=== PATIENT | male | born 1980 | race Caucasian/White ===

== ENCOUNTER 2019-02-20 03:44 | Emergency (ER) | payer SELFPAY ==
--- NOTE | 2019-02-20 04:17 | ER ---
Nurse's Notes [facility] Name: Maikol Zhang Age: 38 yrs Sex: Male : 1980 Arrival Date: 02/20/2019 Time: 03:47 Bed 5 Private MD: Diagnosis: Dysuria Presentation: 02/20 03:54 Presenting complaint: Patient states: "I feel the pain right on the tip of my penis"; lp1 States pain began earlier tonight, denies any penile discharge, skin changes. Transition of care: patient was not received from another setting of care. Onset of symptoms was February 20, 2019. Risk Assessment: Do you want to hurt yourself or someone else? Patient reports no desire to harm self or others. Initial Sepsis Screen: Does the patient meet any 2 criteria? No. Patient's initial sepsis screen is negative. Does the patient have a suspected source of infection? No. Patient's initial sepsis screen is negative. Care prior to arrival: None. 03:54 Method Of Arrival: Ambulatory lp1 03:54 Acuity: MELIDA 4 lp1 Historical: - Allergies: 03:59 No Known Allergies; lp1 - Home Meds: 03:59 lisinopril 40 mg Oral tab 1 tab once daily [Active]; lp1 - PMHx: 03:59 Hypertension; lp1 - PSHx: 03:59 None; lp1 - Immunization history:: Adult Immunizations up to date. - Social history:: Smoking status: Patient uses tobacco products, smokes one-half pack cigarettes per day. - Ebola Screening: : No symptoms or risks identified at this time. - Family history:: not pertinent. - Hospitalizations: : No recent hospitalization is reported. Screenin:00 Abuse screen: Denies threats or abuse. Denies injuries from another. Nutritional lp1 screening: No deficits noted. Tuberculosis screening: No symptoms or risk factors identified. Fall Risk None identified. Assessment: 03:59 General: Appears in no apparent distress. Behavior is appropriate for age. Pain: lp1 Complains of pain in groin Pain currently is 9 out of 10 on a pain scale. Quality of pain is described as burning. Neuro: No deficits noted. Cardiovascular: No deficits noted. Respiratory: No deficits noted. GI: No deficits noted. : Reports pain. EENT: No signs and/or symptoms were reported regarding the EENT system. Derm: Skin is pink, warm \\T\\ dry. Musculoskeletal: No deficits noted. 04:20 Reassessment: Provider notified of patient only able to provide small urine sample; lp1 Verbal order to cancel urine micro and urine culture orders. Vital Signs: 03:58 BP 125 / 96; Pulse 86; Resp 18; Temp 98; Pulse Ox 98% on R/A; Weight 99.79 kg; Height 5 lp1 ft. 11 in. (180.34 cm); Pain 9/10; 03:58 Body Mass Index 30.68 (99.79 kg, 180.34 cm) lp1 ED Course: 03:47 Patient arrived in ED. am2 03:47 Virgilio Mcmahon MD is Attending Physician. rn 03:57 Triage completed. lp1 03:57 Arm band placed on right wrist. lp1 04:00 Patient has correct armband on for positive identification. lp1 04:13 Mary Anne Marc, RN is Primary Nurse. lp1 04:24 No provider procedures requiring assistance completed. Patient did not have IV access lp1 during this emergency room visit. Administered Medications: 04:22 Drug: Rocephin (cefTRIAXone) 250 mg Route: IM; Site: right deltoid; lp1 04:23 Follow up: Response: Medication administered at discharge. lp1 04:23 Drug: AZITHromycin 1 grams Route: PO; lp1 04:23 Follow up: Response: Medication administered at discharge. lp1 Outcome: 04:16 Discharge ordered by . rn 04:24 Discharged to home ambulatory. lp1 04:24 Condition: good 04:24 Discharge instructions given to patient, Instructed on discharge instructions, follow up and referral plans. medication usage, Demonstrated understanding of instructions, follow-up care, medications, Prescriptions given X 1. 04:24 Patient left the ED. lp1 Signatures: Virgilio Mcmahon MD MD rn Pena, Laura, RN RN lp1 Sandra Cotto am
--- NOTE | 2019-02-20 04:17 | EDPHYS ---
Physician Documentation [facility] Name: Maikol Zhang Age: 38 yrs Sex: Male : 1980 Arrival Date: 02/20/2019 Time: 03:47 Bed 5 Private MD: ED Physician Virgilio Mcmhaon HPI: 02/20 04:12 This 38 yrs old Male presents to ER via Ambulatory with complaints of Pain rn With Urination. 04:12 The patient presents with urinary symptoms, dysuria. Onset: The symptoms/episode rn began/occurred 3 day(s) ago. Modifying factors: The symptoms are alleviated by nothing, the symptoms are aggravated by urinating. Severity of symptoms: At their worst the symptoms were mild, in the emergency department the symptoms are unchanged. The patient has experienced a previous episode. REports had unprotected sex with girl, thinks she might have STI, he reports dysuria and pain to tip of penis, no drainage or rash, no hematuria. Has had STI once in past and feels similar. No testicular pain.. Historical: - Allergies: 03:59 No Known Allergies; lp1 - Home Meds: 03:59 lisinopril 40 mg Oral tab 1 tab once daily [Active]; lp1 - PMHx: 03:59 Hypertension; lp1 - PSHx: 03:59 None; lp1 - Immunization history:: Adult Immunizations up to date. - Social history:: Smoking status: Patient uses tobacco products, smokes one-half pack cigarettes per day. - Ebola Screening: : No symptoms or risks identified at this time. - Family history:: not pertinent. - Hospitalizations: : No recent hospitalization is reported. ROS: 04:12 Constitutional: Negative for fever, chills, and weight loss, Cardiovascular: Negative rn for chest pain, palpitations, and edema, Respiratory: Negative for shortness of breath, cough, wheezing, and pleuritic chest pain, Abdomen/GI: Negative for abdominal pain, nausea, vomiting, diarrhea, and constipation, Back: Negative for injury and pain, : + dysuria, negative for injury or rash MS/Extremity: Negative for injury and deformity, Neuro: Negative for headache, weakness, numbness, tingling, and seizure. Exam: 04:12 Constitutional: This is a well developed, well nourished patient who is awake, alert, rn appears anxious Skin: Warm, dry with normal turgor. Normal color with no rashes, no lesions, and no evidence of cellulitis. Vital Signs: 03:58 BP 125 / 96; Pulse 86; Resp 18; Temp 98; Pulse Ox 98% on R/A; Weight 99.79 kg; Height 5 lp1 ft. 11 in. (180.34 cm); Pain 9/10; 03:58 Body Mass Index 30.68 (99.79 kg, 180.34 cm) lp1 MDM: 03:47 Patient medically screened. rn 04:12 Differential diagnosis: UTI, urethritis, STI. 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 Counseling: I had a detailed discussion with the patient and/or guardian regarding: the historical points, exam findings, and any diagnostic results supporting the discharge/admit diagnosis, lab results, the need for outpatient follow up, to return to the emergency department if symptoms worsen or persist or if there are any questions or concerns that arise at home. ED course: Pt is highly suspicious of STI, UA negative, only enough urine for dip, not micro or culture. Will treat with STI prophylaxis, states is going to notify his other partner.. 02/20 03:48 Order name: Urine Dipstick-Ancillary (obtain specimen); Complete Time: 04:23 rn 02/20 04:13 Order name: Urine Dipstick--Ancillary (enter results) mw2 Administered Medications: 04:22 Drug: Rocephin (cefTRIAXone) 250 mg Route: IM; Site: right deltoid; lp1 04:23 Follow up: Response: Medication administered at discharge. lp1 04:23 Drug: AZITHromycin 1 grams Route: PO; lp1 04:23 Follow up: Response: Medication administered at discharge. lp1 Disposition: 02/20/19 04:16 Discharged to Home. Impression: Dysuria. - Condition is Stable. - Discharge Instructions: Dysuria. - Prescriptions for Doxycycline Monohydrate 100 mg Oral Tablet - take 1 tablet by ORAL route every 12 hours for 7 days; 14 tablet. - Medication Reconciliation Form, Thank You Letter, Antibiotic Education, Prescription Opioid Use form. - Follow up: Private Physician; When: As needed; Reason: Recheck today's complaints, Re-evaluation by your physician. - Problem is new. - Symptoms are unchanged. Signatures: Dispatcher [employer] EDMS Virgilio Mcmahon MD MD rn Pena, Laura, RN RN lp1 Corrections: (The following items were deleted from the chart) 04:24 04:16 02/20/2019 04:16 Discharged to Home. Impression: Dysuria. Condition is Stable. lp1 Forms are Medication Reconciliation Form, Thank You Letter, Antibiotic Education, Prescription Opioid Use. Follow up: Private Physician; When: As needed; Reason: Recheck today's complaints, Re-evaluation by your physician. Problem is new. Symptoms are unchanged. rn 04:26 03:50 UA MICROSCOPIC+U.LAB.BRZ ordered. EDMS EDMS 04:26 03:50 Urine Culture+BA.LAB.BRZ ordered. EDMS EDMS
[2019-02-20 04:29] LABS: Urine Blood NEGATIVE (NEG); Urine Glucose NEGATIVE (NEG); Urine Protein NEGATIVE (NEG); Urine Specific Gravity 1.025 (1.005-1.030); Urine pH 6.5 (5.0-7.0)
[2019-02-20] MEDS ORDERED: WATER FOR INJ,STERILE 10 ML ONE (04:32)
[2019-02-20] MEDS ORDERED: AZITHROMYCIN 250 MG TAB ONE (04:32)
[2019-02-20] MEDS ORDERED: CEFTRIAXONE 250 MG/VIAL ONE (04:32)
== END 2019-02-20 04:24 | disposition home or self-care (01) ==
LOC: ER 03:44
DX: R30.0 Dysuria (principal); I10 Essential (primary) hypertension; F17.210 Nicotine dependence, cigarettes, uncomplicated
CPT/HCPCS: 81003; 96372; 99283; J0696

== ENCOUNTER 2021-03-23 09:57 | Emergency (ER) | payer SELFPAY ==
[2021-03-23 10:34] LABS: Absolute Lymphocytes (CBC) 3.9 K/uL (0.7-4.9); Basophils % 0.5 % (0-1.3); Hematocrit 47.5 % (39.6-49.0); Lymphocytes % 43.7 % (15.3-44.8); MPV 7.8 fL (7.6-11.3); RBC Red Blood Cell Count 5.35 M/uL (4.33-5.43)
[2021-03-23 10:36] LABS: Protime INR 1.09
[2021-03-23 10:57] LABS: ALT/SGPT 61 U/L (12-78); AST/SGOT 23 U/L (15-37); Albumin 4.5 g/dL (3.4-5.0); Alkaline Phosphatase 79 U/L (45-117); BUN Blood Urea Nitrogen 14 mg/dL (7-18); Bicarbonate 24 mmol/L (21-32); Bilirubin Direct 0.1 mg/dL (0-0.2); Bilirubin Total 0.5 mg/dL (0.2-1.0); Glucose Level 110 mg/dL (74-106); Magnesium 2.3 mg/dL (1.8-2.4); NT PRO-BNP 9 pg/mL (<125); Potassium 3.9 mmol/L (3.5-5.1); Protein, Total 8.7 g/dL (6.4-8.2); Sodium Level 140 mmol/L (136-145); Troponin (Emerg Dept Use Only) < 0.02 ng/mL (0.0-0.045)
--- NOTE | 2021-03-23 12:16 | RAD REPORT ---
EXAM DESCRIPTION: RAD - Chest Single View - 03/23/2021 12:05 pm CLINICAL HISTORY: DYSPNEA, history of COVID pneumonia 8 months earlier COMPARISON: None TECHNIQUE: AP portable chest image was obtained 03/23/2021 12:05 pm . FINDINGS: Lungs are clear. No remnant pneumonia or postinfectious scarring changes identifiable. Hea rt and vasculature are normal. No measurable pleural effusion and no pneumothorax. No acute bony abno rmality seen. No acute aortic findings suspected. IMPRESSION: No acute cardiopulmonary process.
--- NOTE | 2021-03-23 12:26 | ER ---
Nurse's Notes [facility] Name: Maikol Zhang Age: 40 yrs Sex: Male : 1980 Arrival Date: 03/23/2021 Time: 09:59 Bed 19 Private MD: Diagnosis: Dyspnea Presentation: 03/23 09:59 Chief complaint: Patient states: thinks he had COVID 8 months ago and he was really iw sick for three weeks, is worried that his lungs are damaged, has been SOB since last night, this morning was worse, can't catch his breath. Coronavirus screen: difficulty breathing. Ebola Screen: Patient negative for fever greater than or equal to 101.5 degrees Fahrenheit, and additional compatible Ebola Virus Disease symptoms Patient denies exposure to infectious person. Patient denies travel to an Ebola-affected area in the 21 days before illness onset. No symptoms or risks identified at this time. Initial Sepsis Screen: Does the patient meet any 2 criteria? No. Patient's initial sepsis screen is negative. Does the patient have a suspected source of infection? No. Patient's initial sepsis screen is negative. Risk Assessment: Do you want to hurt yourself or someone else? Patient reports no desire to harm self or others. Onset of symptoms was March 22, 2021. 09:59 Method Of Arrival: Wheelchair 09:59 Acuity: MELIDA 3 iw Triage Assessment: 10:42 Respiratory: Onset: The symptoms/episode began/occurred 8 months ago, the patient has kg moderate shortness of breath. Historical: - Allergies: 10:03 No Known Allergies; iw - Home Meds: 10:03 Suboxone sublingual once daily [Active]; lisinopril 40 mg Oral tab 1 tab once daily iw [Active]; - PMHx: 10:03 Hypertension; iw - PSHx: 10:03 None; iw - Immunization history:: Client reports receiving the 2nd dose of the Covid vaccine. - Social history:: Smoking status: Patient reports the use of cigarette tobacco products, smokes one-half pack cigarettes per day. Screenin:41 Abuse screen: Denies threats or abuse. Denies injuries from another. Nutritional kg screening: No deficits noted. Tuberculosis screening: No symptoms or risk factors identified. Fall Risk None identified. No fall in past 12 months (0 pts). No secondary diagnosis (0 pts). IV access (20 points). Ambulatory Aid- None/Bed Rest/Nurse Assist (0 pts). Gait- Normal/Bed Rest/Wheelchair (0 pts) Mental Status- Oriented to own ability (0 pts). Total Cavazos Fall Scale indicates No Risk (0-24 pts). Assessment: 10:05 Reassessment: JEANNIE Clement in triage assessing pt. jl7 10:15 General: Appears in no apparent distress. Behavior is anxious, crying. Pain: Denies kg pain. Neuro: No deficits noted. Level of Consciousness is awake, alert, obeys commands, Oriented to person, place, time, situation, Appropriate for age Reports. Cardiovascular: Reports nausea, shortness of breath, vomiting, Pt denies pain at this time but states, "I have sharp chest pain that hit really hard but then goes away." Heart tones S1 S2 Capillary refill < 3 seconds Rhythm is sinus rhythm. Respiratory: Reports shortness of breath at rest on exertion Airway is patent Trachea midline Respiratory effort is even, unlabored, relaxed, Respiratory pattern is regular, symmetrical, Ventilator assessment: Breath sounds are clear bilaterally. GI: Reports diarrhea, nausea, vomiting, x 8 months. : No deficits noted. EENT: No deficits noted. Derm: No deficits noted. Musculoskeletal: No deficits noted. 13:25 Reassessment: Gave patient community resources to help him find a PCP and follow up. Pt kg was very upset that the provider didn't give him a prescription for blood pressure medications. I explained that while he was in the ER his B/P was stable and his B/P didn't warrant medications. Pt was adamant that he needed a prescription for blood pressure medications. I explained that he needed to keep a blood pressure journal at home and present it to his primary physician that on today's findings the blood pressure was within normal limits. The patient got very upset and threw the discharge papers on the bed. Then stated he would just be back. I stated that if he felt he had an emergency to please come back. The patient then used the phone to call a ride and went to the waiting room. . Vital Signs: 09:59 BP 143 / 93; Pulse 118; Resp 18 S; Temp 98.6; Pulse Ox 100% on R/A; iw 10:40 BP 134 / 91; Pulse 89; Resp 20; Pulse Ox 95% on R/A; kg 11:00 BP 132 / 85; Pulse 85; Resp 18; Pulse Ox 95% on R/A; kg 11:20 BP 146 / 84; Pulse 94; Resp 20; Pulse Ox 98% on R/A; kg 11:30 BP 125 / 85; Pulse 80; Resp 20; Pulse Ox 99% ; kg 11:45 BP 134 / 91; Pulse 87; Resp 18; Pulse Ox 96% ; kg 12:00 BP 138 / 89; Pulse 80; Resp 18; Pulse Ox 98% ; kg 12:24 BP 129 / 84; Pulse 97; Resp 18 S; Pulse Ox 99% on R/A; kg 12:45 BP 138 / 86; Pulse 80; Resp 17; Pulse Ox 97% ; kg ED Course: 09:59 Patient arrived in ED. iw 10:03 Triage completed. iw 10:04 Arm band placed on. iw 10:09 Jason Her MD is Attending Physician. kdr 10:09 Elsi Mueller, RN is Primary Nurse. kg 10:09 Racquel Rowan [facility]C [facility]. kb 10:30 Inserted saline lock: 20 gauge in right antecubital area, using aseptic technique. kg 10:37 Basic Metabolic Panel Sent. kg 10:37 CBC with Diff Sent. kg 10:37 LFT's Sent. kg 10:37 Magnesium Sent. kg 10:37 NT PRO-BNP Sent. kg 10:37 PT-INR Sent. kg 10:38 Troponin (emerg Dept Use Only) Sent. kg 10:42 Patient has correct armband on for positive identification. Bed in low position. Call kg light in reach. Side rails up X2. 12:05 XRAY Chest (1 view) In Process Unspecified. EDMS 12:45 IV discontinued, intact, bleeding controlled, No redness/swelling at site. Pressure kg dressing applied. 13:03 No provider procedures requiring assistance completed. kg Administered Medications: No medications were administered Outcome: 12:25 Discharge ordered by . kb 13:05 Discharged to home ambulatory. kg 13:05 Condition: stable 13:05 Discharge instructions given to patient, Instructed on discharge instructions, follow up and referral plans. Demonstrated understanding of instructions, follow-up care. 13:24 Patient left the ED. kg Signatures: Dispatcher [employer] EDMS Racquel Rowan FNP-C FNP-CkJason Deluna MD MD kdr Dia Lockhart RN RN iw Adrinaa Cronin RN RN jl7 Elsi Mueller RN RN kg Corrections: (The following items were deleted from the chart) 13:30 10:41 Respiratory: kg kg
--- NOTE | 2021-03-23 12:26 | EDPHYS ---
Physician Documentation [facility] Name: Maikol Zhang Age: 40 yrs Sex: Male : 1980 Arrival Date: 03/23/2021 Time: 09:59 Bed 19 Private MD: ED Physician Jason eHr HPI: 03/23 12:06 This 40 yrs old Male presents to ER via Wheelchair with complaints of kb Breathing Difficulty. 12:06 The patient has shortness of breath at rest. Onset: The symptoms/episode began/occurred kb 8 month(s) ago. Duration: The symptoms are continuous. The patient's shortness of breath is aggravated by nothing, is alleviated by nothing. Associated signs and symptoms: The patient has no apparent associated signs or symptoms. Severity of symptoms: At their worst the symptoms were moderate in the emergency department the symptoms are unchanged. The patient has not experienced similar symptoms in the past. The patient has not recently seen a physician. Pt reports shortness of breath for 8 months or more. States it got worse today. Pt appears anxious during exam. Pt states he is scared. . Historical: - Allergies: 10:03 No Known Allergies; iw - Home Meds: 10:03 Suboxone sublingual once daily [Active]; lisinopril 40 mg Oral tab 1 tab once daily iw [Active]; - PMHx: 10:03 Hypertension; iw - PSHx: 10:03 None; iw - Immunization history:: Client reports receiving the 2nd dose of the Covid vaccine. - Social history:: Smoking status: Patient reports the use of cigarette tobacco products, smokes one-half pack cigarettes per day. ROS: 12:06 Constitutional: Negative for fever, chills, and weight loss. kb 12:06 Respiratory: Positive for shortness of breath, Negative for cough, dyspnea on exertion, hemoptysis, orthopnea, pleurisy, sputum production, wheezing. 12:06 All other systems are negative. Exam: 10:56 Constitutional: This is a well developed, well nourished patient who is awake, alert, kb and in no acute distress. Head/Face: Normocephalic, atraumatic. ENT: Moist Mucous membranes Cardiovascular: Regular rate and rhythm with a normal S1 and S2. No gallops, murmurs, or rubs. No pulse deficits. Respiratory: Respirations even and unlabored. No increased work of breathing, no retractions or nasal flaring. Abdomen/GI: Soft, non-tender. No distention Skin: Warm, dry with normal turgor. Normal color. MS/ Extremity: Pulses equal, no cyanosis. Neurovascular intact. Full, normal range of motion. Neuro: Awake and alert, GCS 15, oriented to person, place, time, and situation. Moves all extremities. Normal gait. Psych: Awake, alert, with orientation to person, place and time. Behavior, mood, and affect are within normal limits. 10:56 Constitutional: The patient appears anxious. 10:56 ECG was reviewed by the Attending Physician. Vital Signs: 09:59 BP 143 / 93; Pulse 118; Resp 18 S; Temp 98.6; Pulse Ox 100% on R/A; iw 10:40 BP 134 / 91; Pulse 89; Resp 20; Pulse Ox 95% on R/A; kg 11:00 BP 132 / 85; Pulse 85; Resp 18; Pulse Ox 95% on R/A; kg 11:20 BP 146 / 84; Pulse 94; Resp 20; Pulse Ox 98% on R/A; kg 11:30 BP 125 / 85; Pulse 80; Resp 20; Pulse Ox 99% ; kg 11:45 BP 134 / 91; Pulse 87; Resp 18; Pulse Ox 96% ; kg 12:00 BP 138 / 89; Pulse 80; Resp 18; Pulse Ox 98% ; kg 12:24 BP 129 / 84; Pulse 97; Resp 18 S; Pulse Ox 99% on R/A; kg 12:45 BP 138 / 86; Pulse 80; Resp 17; Pulse Ox 97% ; kg MDM: 10:09 Patient medically screened. kb 12:06 Data reviewed: vital signs, nurses notes. Data interpreted: Pulse oximetry: on room air kb is 98 %. Interpretation: normal. 12:07 Counseling: I had a detailed discussion with the patient and/or guardian regarding: the kb historical points, exam findings, and any diagnostic results supporting the discharge/admit diagnosis, lab results, radiology results, the need for outpatient follow up, a family practitioner, to return to the emergency department if symptoms worsen or persist or if there are any questions or concerns that arise at home. 12:54 ED course: Discussed all results with pt. Pt educated to follow up with PCP regarding kb symptoms. Pt requests blood pressure medication because he used to be on it, but hasn't taken it since before symptoms started (>8mo). States he was supposed to take lisinopril daily, but when he knew he was running low he would take it every other day or half doses. States he has been out and wants another 90 day supply like he got before. Pt educated to keep a blood pressure log and follow up with PCP for hypertension management as needed. Pt very unhappy that blood pressure medication isn't being prescribed today. Asked pt about history of anxiety. Pt became upset that it was suggested. States he has nothing to be anxious about. Also states he can't relax at home because he has 2 kids. . 03/23 10:10 Order name: Basic Metabolic Panel; Complete Time: 11:09 kb 03/23 10:10 Order name: CBC with Diff; Complete Time: 10:46 kb 03/23 10:10 Order name: LFT's; Complete Time: 11: kb 03/23 10:10 Order name: Magnesium; Complete Time: 11: kb 03/23 10:10 Order name: NT PRO-BNP; Complete Time: 11: kb 03/23 10:10 Order name: PT-INR; Complete Time: :46 kb 03/23 10:10 Order name: Troponin (emerg Dept Use Only); Complete Time: 11: kb 03/23 10:10 Order name: XRAY Chest (1 view); Complete Time: 12:25 kb 03/23 10:10 Order name: EKG; Complete Time: 10:11 kb 03/23 10:10 Order name: Cardiac monitoring; Complete Time: 10:37 kb 03/23 10:10 Order name: EKG - Nurse/Tech; Complete Time: 10:59 kb 03/23 10:10 Order name: D-Dimer; Complete Time: 10:46 kb 03/23 11:43 Order name: SARS-COV-2 RT PCR; Complete Time: 11:50 EDMS 03/23 10:10 Order name: IV Saline Lock; Complete Time: 10:37 kb 03/23 10:10 Order name: Labs collected and sent; Complete Time: 10:37 kb 03/23 10:10 Order name: O2 Per Protocol; Complete Time: 10:37 kb 03/23 10:10 Order name: O2 Sat Monitoring; Complete Time: 10:37 kb EC:56 Rate is 93 beats/min. Rhythm is regular. QRS [place] is Normal. TN interval is normal at kb 136 msec. QRS interval is normal at 90 msec. QT interval is normal at 356 msec. Administered Medications: No medications were administered Disposition: 15:01 Co-signature as Attending Physician, Jason Her MD I agree with the assessment and kdr plan of care. Disposition Summary: 03/23/21 12:25 Discharge Ordered Location: Home kb Condition: Stable kb Diagnosis - Dyspnea kb Followup: kb - With: Emergency Department - When: As needed - Reason: Worsening of condition Followup: kb - With: Private Physician - When: 2 - 3 days - Reason: Recheck today's complaints, Continuance of care, Re-evaluation by your physician Discharge Instructions: - Discharge Summary Sheet kb - Shortness of Breath, Adult, [id number] kb Forms: - Medication Reconciliation Form kb - Thank You Letter kb - Antibiotic Education kb - Prescription Opioid Use kb Signatures: Dispatcher [employer] [facility] Racquel Rowan, MANDIE-C COPY EDITOR-Jason Ascencio MD MD kdr Dia Lockhart RN RN iw Corrections: (The following items were deleted from the chart) 10:43 10:11 CORONAVIRUS+ ordered. [facility] 14:12 12:54 ED course: Discussed all results with pt. Pt educated to follow up with PCP johanna regarding symptoms. Pt requests blood pressure medication because he used to be on it, but hasn't taken it since before symptoms started (>8mo). States he was supposed to take lisinopril daily, but when he knew he was running low he would take it every other day or half doses. States he has been out and wants another 90 day supply like he got before. Pt educated to keep a blood pressure log and follow up with PCP for hypertension management as needed. Pt very unhappy that blood pressure medication isn't being prescribed today. Asked pt about history of anxiety. Pt became upset that it was suggested. States he has nothing to be anxious about. Also states he can't relax at home because he has 2 kids. . kb
[2021-03-23 13:39] VITALS: TEMP 98.6
[2021-03-23 13:51] VITALS: BP 138/86; O2SAT 97
== END 2021-03-23 13:24 | disposition home or self-care (01) ==
LOC: ER 09:57
DX: R06.00 Dyspnea, unspecified (principal); I10 Essential (primary) hypertension; F17.210 Nicotine dependence, cigarettes, uncomplicated; Z20.822 Contact with and (suspected) exposure to COVID-19
CPT/HCPCS: 36415; 71045; 80048; 80076; 83735; 83880; 84484; 85025; 85379; 85610; 93005; 99284; U0003

== ENCOUNTER 2023-01-24 15:52 | Emergency (ER) | payer SELFPAY ==
[2023-01-24 17:13] LABS: Hematocrit 38.8 % (39.6-49.0); Lymphocytes % 5.8 % (15.3-44.8); MCV 89.6 fL (80-100); RBC Red Blood Cell Count 4.33 M/uL (4.33-5.43)
[2023-01-24 17:18] LABS: Protime INR 1.08
[2023-01-24 17:33] LABS: ALT/SGPT 34 U/L (16-61); AST/SGOT 19 U/L (15-37); Albumin 3.8 g/dL (3.4-5.0); Alkaline Phosphatase 60 U/L (45-117); BUN Blood Urea Nitrogen 19 mg/dL (7-18); Bicarbonate 28 mEq/L (21-32); Bilirubin Total 0.3 mg/dL (0.2-1.0); Glomerular Filtration Rate 86 ml/min (=/>90); Glucose Level 155 mg/dL (74-106); Magnesium 1.8 mg/dL (1.6-2.4); NT PRO-BNP 55 pg/mL (<125); Potassium 3.5 mEq/L (3.5-5.1); Protein, Total 7.1 g/dL (6.4-8.2); Sodium Level 135 mEq/L (136-145)
[2023-01-24 17:41] LABS: Bilirubin Direct < 0.1 mg/dL (0-0.2); Bilirubin Indirect, Calculated ND mg/dL (0.2-0.8)
[2023-01-24 17:44] LABS: Barbiturates NEGATIVE (NEGATIVE); Benzodiazepines NEGATIVE (NEGATIVE); Cocaine NEGATIVE (NEGATIVE); METHAMPHETAM NEGATIVE (NEGATIVE); Methadone NEGATIVE (NEGATIVE); Opiates NEGATIVE (NEGATIVE); Phencyclidine NEGATIVE (NEGATIVE); THC Cannibis POSITIVE (NEGATIVE)
[2023-01-24] MEDS ORDERED: LORazepam 2 MG/ML VIAL ONE (18:59)
--- NOTE | 2023-01-24 19:10 | EDPHYS ---
Physician Documentation [facility] Name: Maikol Zhang Age: 42 yrs Sex: Male : 1980 Arrival Date: 01/24/2023 Time: 15:52 Bed DIS5 Private MD: ED Physician Rj Mina HPI: 01/24 16:20 This 42 yrs old Male presents to ER via EMS with complaints of Anxiety, Chest Pain. cp 16:20 The patient or guardian reports chest pain that is located primarily in the anterior cp chest wall, left. 16:20 Onset: today. The pain does not radiate. Associated signs and symptoms: Pertinent cp positives: anxiety, Pertinent negatives: abdominal pain, cough, diaphoresis, dizziness, headache, lower extremity pain, lower extremity swelling, shortness of breath, syncope, vomiting. 16:20 The chest pain is described as a pressure. Duration: The patient or guardian reports a cp single episode, that is still ongoing. 16:20 Severity of pain: in the emergency department the pain is unchanged despite EMS cp interventions. The patient has experienced similar episodes in the past, multiple times. Patient reports episodes of chest pain occur when he becomes upset. History of HTN and illegal drug use but reports last use was 3 years ago. Historical: - Allergies: 16:20 No Known Allergies; aa5 - PMHx: 16:20 Hypertension; aa5 16:20 Schizophrenia; aa5 16:20 Drug Abuse; Sober since 2019; aa5 - Immunization history:: Adult Immunizations unknown. - Social history:: Smoking status: Patient reports the use of cigarette tobacco products, 5 cigarettes a day . ROS: 16:25 Constitutional: Negative for body aches, chills, fever, poor PO intake. cp 16:25 Eyes: Negative for injury, pain, redness, and discharge. cp 16:25 ENT: Negative for drainage from ear(s), ear pain, sore throat, difficulty swallowing, difficulty handling secretions. 16:25 Cardiovascular: Positive for chest pain, palpitations, Negative for edema. 16:25 Respiratory: Positive for shortness of breath, Negative for cough, wheezing. 16:25 Abdomen/GI: Negative for abdominal pain, nausea, vomiting, and diarrhea. 16:25 Back: Negative for pain at rest, pain with movement. 16:25 Neuro: Negative for altered mental status, dizziness, headache, weakness. 16:25 Psych: Positive for anxiety, Negative for auditory hallucinations, visual hallucinations, suicide gesture, suicidal ideation. 16:25 All other systems are negative. Exam: 16:30 Constitutional: The patient appears in no acute distress, alert, awake, cp non-diaphoretic, non-toxic, well developed, well nourished, anxious, tearful 16:30 Head/Face: Normocephalic, atraumatic. cp 16:30 Eyes: Periorbital structures: appear normal, Conjunctiva: normal, no exudate, no injection, Sclera: no appreciated abnormality, Lids and lashes: appear normal, bilaterally. 16:30 ENT: External ear(s): are unremarkable, Nose: is normal, Mouth: Lips: moist, Oral mucosa: pink and intact, moist, Posterior pharynx: is normal, airway is patent, no erythema, no exudate. 16:30 Neck: ROM/movement: is normal, is supple, without pain, no range of motions limitations. 16:30 Chest/axilla: Inspection: normal, Palpation: is normal, no crepitus, no tenderness. 16:30 Cardiovascular: Rate: tachycardic, Rhythm: regular, Edema: is not appreciated, JVD: is not appreciated. 16:30 Respiratory: the patient does not display signs of respiratory distress, Respirations: normal, no use of accessory muscles, no retractions, labored breathing, is not present, Breath sounds: are clear throughout, no decreased breath sounds, no stridor, no wheezing. 16:30 Abdomen/GI: Inspection: abdomen appears normal, Palpation: abdomen is soft and non-tender, in all quadrants. 16:30 Back: pain, is absent, ROM is normal. 16:30 Neuro: Orientation: to person, place \T\ time. Mentation: is normal, Motor: moves all fours, strength is normal, Sensation: is normal, Gait: is steady. 16:40 ECG was reviewed by the Attending Physician. cp Vital Signs: 16:20 BP 152 / 85; Pulse 105; Resp 20 S; Temp 98.2(TE); Pulse Ox 100% on R/A; aa5 16:20 Weight 95.71 kg (R); Height 5 ft. 11 in. (R); aa5 18:32 BP 145 / 73; Pulse 79; Resp 16; Pulse Ox 100% on R/A; iw 16:20 Body Mass Index 29.43 (95.71 kg, 180.34 cm) aa5 MDM: 16:20 Patient medically screened. cp 19:05 The patient was given aspirin in the Emergency Department. cp 19:05 Data reviewed: vital signs, nurses notes, lab test result(s), EKG, radiologic studies, cp plain films. Consideration of Admission/Observation Escalation of care including admission/observation considered. I considered the following discharge prescriptions or medication management in the emergency department Medications were administered in the Emergency Department. See MAR. Test considered but Not performed: CT: chest. Care significantly affected by the following chronic conditions: Hypertension. Counseling: I had a detailed discussion with the patient and/or guardian regarding: the historical points, exam findings, and any diagnostic results supporting the discharge/admit diagnosis, lab results, radiology results, the need for outpatient follow up, a equipment maintenance tech, to return to the emergency department if symptoms worsen or persist or if there are any questions or concerns that arise at home. Response to treatment: the patient's symptoms have markedly improved after treatment, Patient reports symptoms improved and requesting discharge to home. Special discussion: Based on the patient's history, exam, and Dx evaluation, there is no indication for emergent intervention or inpatient Tx. It is understood by the patient/guardian that if the Sx's persist or worsen they need to return immediately for re-evaluation. 01/24 16: Order name: Basic Metabolic Panel; Complete Time: 17:55 cp 01/24 17:55 Interpretation: Normal except: NA 135; GLUC 155; BUN 19; GFR 86. cp 01/24 16:27 Order name: CBC with Diff; Complete Time: 17:55 cp 01/24 17:55 Interpretation: Normal except: WBC 17.90; HGB 12.9; HCT 38.8; ASHISH% 90.2; LYM% 5.8; NEUT cp A 16.2. 01/24 16:27 Order name: LFT's; Complete Time: 17:55 cp 01/24 16:27 Order name: Magnesium; Complete Time: 17:55 cp 01/24 16:27 Order name: NT PRO-BNP; Complete Time: 17:55 cp 01/24 16:27 Order name: PT-INR; Complete Time: 17:55 cp 01/24 16:27 Order name: Troponin HS; Complete Time: 17:55 cp 01/24 16:28 Order name: UDS; Complete Time: 17:55 cp 01/24 17:56 Order name: LAB Add On cp 01/24 17:56 Order name: D-Dimer; Complete Time: 18:31 cp 01/24 18:31 Interpretation: Reviewed. cp 01/24 16:27 Order name: XRAY Chest (1 view) cp 01/24 16:27 Order name: EKG; Complete Time: 16:28 cp 01/24 16:27 Order name: Cardiac monitoring; Complete Time: 18:27 cp 01/24 16:27 Order name: EKG - Nurse/Tech; Complete Time: 16:38 cp 01/24 16:27 Order name: IV Saline Lock; Complete Time: 17:01 cp 01/24 16:27 Order name: Labs collected and sent; Complete Time: 17:01 cp 01/24 16:27 Order name: O2 Per Protocol; Complete Time: 17:01 cp 01/24 16:27 Order name: O2 Sat Monitoring; Complete Time: 17:01 EC:40 Rate is 92 beats/min. Rhythm is regular. PA interval is normal. QRS interval is cp prolonged at 108 msec. QT interval is normal. T waves are Inverted in lead aVR. Interpreted by me. Reviewed by me. Administered Medications: 18:27 Not Given (Patient Refused): Aspirin PO Chewable Tablet 324 mg PO once; 81 mg tablets x iw 4 18:27 Not Given (Patient Refused): Nitroglycerin Sublingual 0.4 mg Sublingual once iw 18:55 Drug: Ativan IVP 1 mg Route: IVP; Site: left antecubital; iw 18:57 Not Given (Patient Refused): NS 0.9% IV 1000 ml IV at 1 bolus Per protocol; 1000 mL iw bolus Disposition Summary: 01/24/23 19:09 Discharge Ordered Location: Home cp Problem: new cp Symptoms: have improved cp Condition: Stable cp Diagnosis - Chest pain, unspecified cp - Generalized anxiety disorder cp Followup: cp - With: Marty Bhatt MD - When: 2 - 3 days - Reason: chest pain Discharge Instructions: - Discharge Summary Sheet cp - Nonspecific Chest Pain, Adult cp - Aspirin and Your Heart cp - Managing Anxiety, Adult cp Forms: - Medication Reconciliation Form cp - Thank You Letter cp - Antibiotic Education cp - Prescription Opioid Use cp Prescriptions: - Vistaril 25 mg Oral capsule - take 1 capsule by ORAL route 4 times per day as needed for anxiety; 30 capsule; cp Refills: 0, Product Selection Permitted Signatures: Dispatcher [employer] Dia Croft RN RN iw Calderon, Audri, RN RN aa5 Rj Joya PA PA cp Corrections: (The following items were deleted from the chart) 01/25 18:01/23 16:40 ECG was reviewed by the Attending Physician. cp cp 01/25 18:01/23 16:40 Rate is 92 beats/min. Rhythm is regular. PA interval is normal. QRS cp interval is prolonged at 108 msec. QT interval is normal. T waves are Inverted in lead aVR. Interpreted by me. Reviewed by me. cp
--- NOTE | 2023-01-24 19:10 | ER ---
Nurse's Notes [facility] Name: Maikol Zhang Age: 42 yrs Sex: Male : 1980 Arrival Date: 01/24/2023 Time: 15:52 Bed DIS5 Private MD: Diagnosis: Chest pain, unspecified;Generalized anxiety disorder Presentation: 01/24 16:20 Chief complaint: EMS states: anxiety attack, pt was found crying, with HR 160bpm upon aa5 arrival. EMS reports HR decreased to 110bpm after 500 cc NS bolus. Pt c/o chest pain, reports has already been seen by PCP and fitness technician. 16:20 Acuity: MELIDA 3 aa5 16:20 Coronavirus screen: At this time, the client does not indicate any symptoms associated aa5 with coronavirus-19. Ebola Screen: Patient denies travel to an Ebola-affected area in the 21 days before illness onset. Initial Sepsis Screen: Does the patient meet any 2 criteria? HR > 90 bpm. Does the patient have a suspected source of infection? No. Patient's initial sepsis screen is negative. Risk Assessment: Do you want to hurt yourself or someone else? Patient reports no desire to harm self or others. Onset of symptoms was January 24, 2023. 16:20 Method Of Arrival: EMS: [facility] aa5 16:20 Care prior to arrival: Medication(s) given: Normal saline infusion, 1000 mL, IV aa5 initiated. 20 GA, in the left antecubital area. Triage Assessment: 16:20 General: Appears comfortable, Behavior is calm, cooperative. Neuro: Level of aa5 Consciousness is awake, alert, obeys commands, Oriented to person, place, time, situation. Respiratory: Airway is patent Respiratory effort is even, unlabored, Respiratory pattern is regular, symmetrical. Derm: Skin is pink, warm \T\ dry. Historical: - Allergies: 16:20 No Known Allergies; aa5 - PMHx: 16:20 Hypertension; aa5 16:20 Schizophrenia; aa5 16:20 Drug Abuse; Sober since 2019; aa5 - Immunization history:: Adult Immunizations unknown. - Social history:: Smoking status: Patient reports the use of cigarette tobacco products, 5 cigarettes a day . Screenin:28 [facility] ED Fall Risk Assessment (Adult) History of falling in the last 3 months, iw including since admission. Abuse screen: Denies threats or abuse. Denies injuries from another. Nutritional screening: No deficits noted. Tuberculosis screening: No symptoms or risk factors identified. Assessment: 18:28 Reassessment: Patient appears in no apparent distress at this time. Patient and/or iw family updated on plan of care and expected duration. Pain level reassessed. Patient is alert, oriented x 3, equal unlabored respirations, skin warm/dry/pink. Patient states feeling better. Patient states symptoms have improved. 18:55 Reassessment: Patient appears in no apparent distress at this time. Patient and/or iw family updated on plan of care and expected duration. Pain level reassessed. Patient is alert, oriented x 3, equal unlabored respirations, skin warm/dry/pink. Pain: Denies pain. Pain does not radiate. Pain began suddenly. Cardiovascular: Patient's skin is warm and dry. 19:17 Reassessment: Patient appears in no apparent distress at this time. Patient and/or vg1 family updated on plan of care and expected duration. Pain level reassessed. Patient is alert, oriented x 3, equal unlabored respirations, skin warm/dry/pink. Patient states feeling better. Vital Signs: 16:20 BP 152 / 85; Pulse 105; Resp 20 S; Temp 98.2(TE); Pulse Ox 100% on R/A; aa5 16:20 Weight 95.71 kg (R); Height 5 ft. 11 in. (R); aa5 18:32 BP 145 / 73; Pulse 79; Resp 16; Pulse Ox 100% on R/A; iw 16:20 Body Mass Index 29.43 (95.71 kg, 180.34 cm) aa5 ED Course: 15:53 Patient arrived in ED. kj1 16:00 Rj Joya PA is PHCP. cp 16:00 Rj Mina MD is Attending Physician. cp 16:20 Arm band placed on. aa5 16:24 Triage completed. aa5 16:27 EKG completed in triage. Results shown to MD. aa5 16:53 XRAY Chest (1 view) In Process Unspecified. EDMS 17:01 Dia Lockhart, RN is Primary Nurse. iw 17:01 Maintain EMS IV. Dressing intact. Good blood return noted. Site clean \T\ dry. Gauge \T\ iw site: 20 LAC. 18:56 No provider procedures requiring assistance completed. IV discontinued, intact, iw bleeding controlled, No redness/swelling at site. Pressure dressing applied. Patient maintains SpO2 saturation greater than 95% on room air. 19:08 Marty Bhatt MD is Referral Physician. cp Administered Medications: 18:27 Not Given (Patient Refused): Aspirin PO Chewable Tablet 324 mg PO once; 81 mg tablets x iw 4 18:27 Not Given (Patient Refused): Nitroglycerin Sublingual 0.4 mg Sublingual once iw 18:55 Drug: Ativan IVP 1 mg Route: IVP; Site: left antecubital; iw 18:57 Not Given (Patient Refused): NS 0.9% IV 1000 ml IV at 1 bolus Per protocol; 1000 mL iw bolus Medication: 18:28 VIS not applicable for this client. iw Outcome: 19:09 Discharge ordered by . cp 19:18 Discharged to home ambulatory, with family. vg1 19:18 Condition: good 19:18 Discharge instructions given to patient, Instructed on discharge instructions, follow up and referral plans. medication usage, Demonstrated understanding of instructions, follow-up care, medications, Prescriptions given X 1. 19:18 Patient left the ED. vg1 Signatures: Dispatcher [employer] EDMS Dia Lockhart, RN RN iw Rayna Tillman RN RN aa5 Rj Joya PA PA Rosetta Echols kj1 Lauren Cavanaugh, RN RN vg1
[2023-01-24 19:30] VITALS: TEMP 98.2; O2SAT 100
--- NOTE | 2023-01-24 19:30 | RAD REPORT ---
EXAM DESCRIPTION: RADChest Single View01/24/2023 4:51 pm CLINICAL HISTORY: CHEST PAIN COMPARISON: Chest Single View dated 03/23/2021 TECHNIQUE: Portable AP view of the chest. FINDINGS: Mild bibasilar interstitial prominence. No focal consolidation. No pneumothorax or effusio n. The cardiomediastinal contours are unremarkable. IMPRESSION: Mild bibasilar interstitial prominence, could reflect mild central edema.
[2023-01-24 19:32] VITALS: BP 145/73
--- NOTE | 2023-01-25 11:22 | EKG ---
Test Date: 2023-01-24 Test Time: 16:32:55 Feed Elevator Worker: ASHLEY MEASUREMENT RESULTS: Intervals: Rate: 92 NH: 158 QRSD: 108 QT: 356 QTc: 440 [place]: P: 66 NH: 158 QRS: 62 T: 43 INTERPRETIVE STATEMENTS: Normal sinus rhythm Normal ECG Compared to ECG 03/23/2021 10:50:31 No significant changes Electronically Signed On 01-25-23 11:20:13 CDT by Raul Carlin
== END 2023-01-24 19:18 | disposition home or self-care (01) ==
LOC: ER 15:52
DX: F41.1 Generalized anxiety disorder (principal)
CPT/HCPCS: 36415; 71045; 80048; 80076; 80307; 83735; 83880; 84484; 85025; 85379; 85610; 93005

== ENCOUNTER 2023-06-13 10:03 | Emergency (ER) | payer SELFPAY ==
[2023-06-13] MEDS ORDERED: ASPIRIN 81 MG CHEWABLE TABLET ONE (10:25)
[2023-06-13 10:41] LABS: Absolute Lymphocytes (CBC) 3.6 K/uL (0.7-4.9); Hematocrit 44.4 % (39.6-49.0); Lymphocytes % 28.9 % (15.3-44.8); MPV 7.6 fL (7.6-11.3); Platelets 390 thou/uL (152-406); RBC Red Blood Cell Count 4.83 M/uL (4.33-5.43)
--- NOTE | 2023-06-13 10:53 | RAD REPORT ---
EXAM DESCRIPTION: RAD - Chest Single View - 06/13/2023 10:40 am CLINICAL HISTORY: CHEST PAIN Chest pain. COMPARISON: Chest Single View dated 01/24/2023; Chest Single View dated 03/23/2021 FINDINGS: Portable technique limits examination quality. The lungs are grossly clear. The heart is normal in size. No displaced fractures. IMPRESSION: No acute intrathoracic process suspected.
[2023-06-13 11:00] LABS: Potassium 3.6 mEq/L (3.5-5.1); Troponin High Sensitivity 3.9 pg/mL (<58.9)
--- NOTE | 2023-06-13 11:24 | EDPHYS ---
Physician Documentation [facility] Name: Maikol Zhang Age: 43 yrs Sex: Male : 1980 Arrival Date: 06/13/2023 Time: 10:03 Bed 14 Private MD: ED Physician Xavi Prado HPI: 06/13 11:23 This 43 yrs old Male presents to ER via Ambulatory with complaints of Chest Pain. ms3 11:23 43-year-old male with past medical history of hypertension, schizophrenia, drug abuse ms3 presents for chest pain that is been ongoing for 4-1/2 days. Patient states the pain has been constant. Patient denies nausea, vomiting, sweating. Patient endorses anxiety and shortness of breath. Patient states the pain is worse with deep breathing and stretching his chest. Patient denies alleviating factors. Historical: - Allergies: 10:53 No Known Allergies; nj1 - Home Meds: 10:53 Suboxone sublingual once daily [Active]; nj1 - PMHx: 10:53 drug abuse; Hypertension; Schizophrenia; Sober since 2019; nj1 - Immunization history:: Client reports receiving the 2nd dose of the Covid vaccine. - Social history:: Smoking status: Patient reports the use of cigarette tobacco products, smokes one-half pack cigarettes per day. ROS: 11:23 Constitutional: Negative for fever, and chills. Neck: Negative for injury, pain, and ms3 swelling, Respiratory: Negative for shortness of breath, cough, wheezing, and pleuritic chest pain, Abdomen/GI: Negative for abdominal pain, nausea, vomiting, diarrhea, and constipation, MS/Extremity: Negative for injury and deformity, Skin: Negative for injury, rash, and discoloration, 11:23 Cardiovascular: Positive for chest pain, 11:23 All other systems are negative, Exam: 11:23 Constitutional: This is a well developed, well nourished patient who is awake, alert, ms3 and in no acute distress. Head/Face: Normocephalic, atraumatic. Chest/axilla: Normal chest wall appearance and motion. Nontender with no deformity. Respiratory: Lungs have equal breath sounds bilaterally, clear to auscultation and percussion. No rales, rhonchi or wheezes noted. No increased work of breathing, no retractions or nasal flaring. Abdomen/GI: Soft, non-tender, with normal bowel sounds. No distension or tympany. No guarding or rebound. No evidence of tenderness throughout. 11:23 Skin: Warm, dry with normal turgor. Normal color with no rashes, no lesions, and no evidence of cellulitis. MS/ Extremity: Pulses equal, no cyanosis. Neurovascular intact. Full, normal range of motion. 11:23 Cardiovascular: Rate: tachycardic, Rhythm: regular, Pulses: no pulse deficits are appreciated, Heart sounds: normal, normal S1and S2, 11:23 ECG was reviewed by the Attending Physician. Vital Signs: 10:14 BP 176 / 92; Pulse 130; Resp 21; Temp 97(A); Pulse Ox 99% on R/A; Weight 90.72 kg; nj1 Height 5 ft. 11 in. ; Pain 7/10; 11:12 BP 111 / 55; Pulse 82; Resp 11; Pulse Ox 95% on R/A; nj1 11:24 BP 112 / 79; Pulse 76; Resp 12; Pulse Ox 99% ; nj1 10:14 Body Mass Index 27.89 (90.72 kg, 180.34 cm) nj1 10:14 Pain Scale: Adult nj1 MDM: 10:22 Patient medically screened. ms3 11:23 Differential diagnosis: abnormal EKG, acute myocardial infarction, coronary artery ms3 disease chest wall pain. HEART Score: History: Slightly Suspicious (0), ECG: Normal (0), Age: < or = 45 years (0), Risk Factors: 1 or 2 risk factors (1), [Hypertension] Troponin: < or = 1 x Normal Limit (0), Total Score = 1. The patient was given aspirin in the Emergency Department. Data reviewed: vital signs, nurses notes, lab test result(s), EKG, radiologic studies, and as a result, I will discharge patient. Consideration of Admission/Observation Escalation of care including admission/observation considered. HEART score 1; Trop Negative. I considered the following discharge prescriptions or medication management in the emergency department Medications were administered in the Emergency Department. See MAR. Independent interpretation of the following test(s) in the Emergency Department EKG: See my EKG interpretation above X-Ray: My interpretation is CXR image reviewed by me does not show PNA, PTX, or Pulmonary edema. Counseling: I had a detailed discussion with the patient and/or guardian regarding the historical points, exam findings, and any diagnostic results supporting the discharge/admit diagnosis, lab results, radiology results, the need for outpatient follow up, to return to the emergency department if symptoms worsen or persist or if there are any questions or concerns that arise at home. Response to treatment: the patient's symptoms have markedly improved after treatment, and as a result, I will discharge patient. Special discussion: Based on the patient's history, exam, and Dx evaluation, there is no indication for emergent intervention or inpatient Tx. It is understood by the patient/guardian that if the Sx's persist or worsen they need to return immediately for re-evaluation. ED course: Discussed labs, chest x-ray, EKG with patient. Patient to follow-up with Dr. Bhatt and 1 to 2 days. Patient understands and agrees with plan. All questions were answered. Return precautions discussed include shortness of breath, nausea, vomiting, worsening symptoms, or any other concerns. On reevaluation patient is alert and oriented x4, in no apparent distress, nontoxic-appearing, ambulatory in emergency department, speaking full sentences. 06/13 10:08 Order name: Basic Metabolic Panel; Complete Time: 11:11 ms3 06/13 10:08 Order name: CBC with Diff; Complete Time: 11:11 ms3 06/13 10:08 Order name: Troponin HS; Complete Time: 11:11 ms3 06/13 10:24 Order name: D-Dimer; Complete Time: 11:11 ms3 06/13 10:08 Order name: XRAY Chest (1 view); Complete Time: 11:11 ms3 06/13 10:08 Order name: EKG; Complete Time: 10:09 ms3 06/13 10:08 Order name: Cardiac monitoring; Complete Time: 10:30 ms3 06/13 10:08 Order name: EKG - Nurse/Tech; Complete Time: 10:16 ms3 06/13 10:08 Order name: IV Saline Lock; Complete Time: 10:30 ms3 06/13 10:08 Order name: Labs collected and sent; Complete Time: 10:30 ms3 06/13 10:08 Order name: O2 Per Protocol; Complete Time: 10:30 ms3 06/13 10:08 Order name: O2 Sat Monitoring; Complete Time: 10:30 ms3 EC: Rate is 130 beats/min. Rhythm is regular. QRS [place] is Normal. ME interval is normal. ms3 QRS interval is normal. Clinical impression: Sinus tachycardia. Interpreted by me. Reviewed by me. Administered Medications: 10:15 Drug: Aspirin PO Chewable Tablet 324 mg PO once; 81 mg tablets x 4 Route: PO; nj1 11:40 Follow up: Response: No adverse reaction nj1 11:23 Not Given (Physician Discretion): ativan0.5 mg IVP once nj1 Disposition Summary: 06/13/23 11:23 Discharge Ordered Notes: Location: Home ms3 Condition: Stable ms3 Diagnosis - Chest pain, unspecified ms3 Followup: ms3 - With: Marty Bhatt MD - When: 1 - 2 days - Reason: Recheck today's complaints Discharge Instructions: - Discharge Summary Sheet ms3 - Nonspecific Chest Pain, Adult ms3 Forms: - Medication Reconciliation Form ms3 - Thank You Letter ms3 - Antibiotic Education ms3 - Prescription Opioid Use ms3 - Patient Portal Instructions ms3 - Leadership Thank You Letter ms3 Signatures: Dispatcher [employer] EDXavi Osei DO DO ms3 Ruma Gutierrez, RN RN nj1
--- NOTE | 2023-06-13 11:24 | ER ---
Nurse's Notes [facility] Name: Maikol Zhang Age: 43 yrs Sex: Male : 1980 Arrival Date: 06/13/2023 Time: 10:03 Bed 14 Private MD: Diagnosis: Chest pain, unspecified Presentation: 06/13 10:14 Chief complaint: Patient states: Chest pain since evening. [facility] 10:14 Coronavirus screen: Vaccine status: Patient reports receiving the 2nd dose of the covid nj1 vaccine. Ebola Screen: Patient denies travel to an Ebola-affected area in the 21 days before illness onset. Initial Sepsis Screen: Does the patient meet any 2 criteria? HR > 90 bpm. No. Patient's initial sepsis screen is negative. Does the patient have a suspected source of infection? No. Patient's initial sepsis screen is negative. Risk Assessment: Do you want to hurt yourself or someone else? Patient reports no desire to harm self or others. Onset of symptoms was June 07, 2023. 10:14 Method Of Arrival: Ambulatory [facility] 10:14 Acuity: MELIDA 3 nj Historical: - Allergies: 10:53 No Known Allergies; nj1 - Home Meds: 10:53 Suboxone sublingual once daily [Active]; nj1 - PMHx: 10:53 drug abuse; Hypertension; Schizophrenia; Sober since 2019; nj1 - Immunization history:: Client reports receiving the 2nd dose of the Covid vaccine. - Social history:: Smoking status: Patient reports the use of cigarette tobacco products, smokes one-half pack cigarettes per day. Screenin:56 [facility] ED Fall Risk Assessment (Adult) Score/Fall Risk Level 0 - 2 = Low Risk [facility] Oriented to surroundings, Maintained a safe environment, Hourly rounding (assess needs \T\ fall precautionary measures) done. Abuse screen: Denies threats or abuse. Denies injuries from another. Nutritional screening: No deficits noted. Tuberculosis screening: No symptoms or risk factors identified. Assessment: 10:15 General: Appears in no apparent distress. uncomfortable, Behavior is cooperative, nj1 anxious. Pain: Complains of pain in chest Pain does not radiate. Pain currently is 7 out of 10 on a pain scale. Pain began 2-3 days ago. 10:15 Cardiovascular: Rhythm is sinus tachycardia Chest pain is aggravated by breathing. nj1 11:13 Reassessment: Patient appears in no apparent distress at this time. Patient and/or nj1 family updated on plan of care and expected duration. Pain level reassessed. Patient is alert, oriented x 3, equal unlabored respirations, skin warm/dry/pink. Vital Signs: 10:14 BP 176 / 92; Pulse 130; Resp 21; Temp 97(A); Pulse Ox 99% on R/A; Weight 90.72 kg; nj1 Height 5 ft. 11 in. ; Pain 7/10; 11:12 BP 111 / 55; Pulse 82; Resp 11; Pulse Ox 95% on R/A; nj1 11:24 BP 112 / 79; Pulse 76; Resp 12; Pulse Ox 99% ; nj1 10:14 Body Mass Index 27.89 (90.72 kg, 180.34 cm) nj1 10:14 Pain Scale: Adult nj1 ED Course: 10:07 Patient arrived in ED. im 10:07 Xavi Prado DO is Attending Physician. ms3 10:10 Ruma Gutierrez, JONES is Primary Nurse. nj1 10:16 EKG done, by ED staff, reviewed by Xavi Prado DO. em1 10:25 Inserted saline lock: 20 gauge in right antecubital area, using aseptic technique. nj1 Blood collected. 10:41 XRAY Chest (1 view) In Process Unspecified. EDMS 10:53 Triage completed. nj1 10:55 Arm band placed on right wrist. nj1 10:56 Patient has correct armband on for positive identification. Bed in low position. Call nj1 light in reach. Provided Education on: call light, fall precautions. Client placed on continuous cardiac and pulse oximetry monitoring. NIBP monitoring applied. 10:57 Patient maintains SpO2 saturation greater than 95% on room air. nj1 11:23 Marty Bhatt MD is Referral Physician. ms3 11:37 No provider procedures requiring assistance completed. IV discontinued, intact, nj1 bleeding controlled. Administered Medications: 10:15 Drug: Aspirin PO Chewable Tablet 324 mg PO once; 81 mg tablets x 4 Route: PO; nj1 11:40 Follow up: Response: No adverse reaction nj1 11:23 Not Given (Physician Discretion): ativan0.5 mg IVP once nj1 Medication: 11:38 VIS not applicable for this client. nj1 Outcome: 11:23 Discharge ordered by . ms3 11:38 Discharged to home ambulatory, nj1 11:38 Condition: stable 11:38 Discharge instructions given to patient, Instructed on discharge instructions, follow up and referral plans. Demonstrated understanding of instructions, follow-up care, 11:39 Patient left the ED. nj1 Signatures: Dispatcher [employer] Onesimo Eubanks em1 Xavi Prado DO DO ms3 Ruma Gutierrez RN RN nj1 Sadia Cortez im Corrections: (The following items were deleted from the chart) 10:58 10:15 Cardiovascular: Chest pain is aggravated by breathing, nj1 nj1
[2023-06-13 11:43] VITALS: TEMP 97
[2023-06-13 11:46] VITALS: BP 112/79; O2SAT 99
--- NOTE | 2023-06-14 17:01 | EKG ---
Test Date: 2023-06-13 Test Time: 10:15:18 Instrumental Music Teacher: DORA MEASUREMENT RESULTS: Intervals: Rate: 130 KS: 144 QRSD: 90 QT: 396 QTc: 582 [place]: P: 69 KS: 144 QRS: 70 T: 61 INTERPRETIVE STATEMENTS: Sinus tachycardia Otherwise normal ECG Compared to ECG 01/24/2023 16:32:55 Sinus rhythm no longer present Electronically Signed On 06-14-23 16:56:56 CDT by Marty Bhatt
== END 2023-06-13 11:39 | disposition home or self-care (01) ==
LOC: ER 10:03
DX: R07.89 Other chest pain (principal); I10 Essential (primary) hypertension; F17.210 Nicotine dependence, cigarettes, uncomplicated; F20.9 Schizophrenia, unspecified
CPT/HCPCS: 36415; 71045; 80048; 84484; 85025; 85379; 93005; 99284

== ENCOUNTER → 2023-09-01 | Emergency (ER) | payer SELFPAY ==
--- NOTE | 2023-09-01 21:29 | ER ---
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 Coronavirus screen: Vaccine status: Patient reports receiving the 2nd dose of the covid vaccine. Client denies travel out of the [place] in the last 14 days. At this time, the client does not indicate any symptoms associated with coronavirus-19. Ebola Screen: Patient negative for fever greater than or equal to 101.5 degrees Fahrenheit, and additional compatible Ebola Virus Disease symptoms. Initial Sepsis Screen: Does the patient meet any 2 criteria? No. Patient's initial sepsis screen is negative. Does the patient have a suspected source of infection? No. Patient's initial sepsis screen is negative. Risk Assessment: Do you want to hurt yourself or someone else? Patient reports no desire to harm self or others. 19:56 Method Of Arrival: Ambulatory pf1 19:56 Acuity: MELIDA 3 pf1 Historical: - Allergies: 20:04 No Known Allergies; pf1 - PMHx: 20:04 drug abuse; Hypertension; Schizophrenia; Sober since 2019; pf1 - PSHx: 20:04 None; pf1 - Immunization history:: Adult Immunizations up to date, Client reports receiving the 2nd dose of the Covid vaccine, pfizer Last tetanus immunization: > 10 years ago Flu vaccine is not up to date. - Social history:: Smoking status: Patient reports the use of cigarette tobacco products, smokes one-half pack cigarettes per day, Patient uses street drugs, marijuana, Patient/guardian denies using alcohol, Patient/guardian denies using. Vital Signs: 19:56 BP 131 / 82; Pulse 92; Resp 16; Temp 99; Pulse Ox 96% ; Weight 90.72 kg; Height 5 ft. pf1 11 in. ; Pain 10/10; 19:56 Body Mass Index 27.89 (90.72 kg, 180.34 cm) pf1 19:56 Pain Scale: Adult pf1 ED Course: 19:50 Patient arrived in ED. jj6 20:04 Triage completed. pf1 20:27 Eugene Morton is Attending Physician. ci Administered Medications: No medications were administered Outcome: 21:27 Patient left the ED. pf1 Signatures: Tanya Bernadette j6 Shania Grover RN RN pf1 Eugene Morton ci Corrections: (The following items were deleted from the chart) 20:05 20:04 Social history: Smoking status: Patient reports the use of cigarette tobacco pf1 products, smokes one-half pack cigarettes per day, Patient/guardian denies using alcohol, street drugs, pf1 21:29 21:29 Patient left the ED. pf1 pf1
[2023-09-01 23:08] VITALS: BP 131/82; TEMP 99; O2SAT 96
--- NOTE | 2023-09-02 21:29 | EDPHYS ---
Physician Documentation [facility] Name: Maikol Zhang Age: 43 yrs Sex: Male : 1980 Arrival Date: 09/01/2023 Time: 19:49 Bed IW2 Private MD: ED Physician Eugene Morton Historical: - Allergies: 09/01 20:04 No Known Allergies; pf1 - PMHx: 20:04 drug abuse; Hypertension; Schizophrenia; Sober since 2019; pf1 - PSHx: 20:04 None; pf1 - Immunization history:: Adult Immunizations up to date, Client reports receiving the 2nd dose of the Covid vaccine, pfizer Last tetanus immunization: > 10 years ago Flu vaccine is not up to date. - Social history:: Smoking status: Patient reports the use of cigarette tobacco products, smokes one-half pack cigarettes per day, Patient uses street drugs, marijuana, Patient/guardian denies using alcohol, Patient/guardian denies using. Vital Signs: 19:56 BP 131 / 82; Pulse 92; Resp 16; Temp 99; Pulse Ox 96% ; Weight 90.72 kg; Height 5 ft. pf1 11 in. ; Pain 10/10; 19:56 Body Mass Index 27.89 (90.72 kg, 180.34 cm) pf1 19:56 Pain Scale: Adult pf1 MDM: 20:27 Patient medically screened. ci 20:29 ED course: Patient called, no answer, [id number]\T\[id number]. ci 09/01 21:21 Order name: EKG; Complete Time: 21:22 ci Administered Medications: No medications were administered Disposition Summary: 09/01/23 21:29 Eloped Notes: Disposition: post triage evaluation and consult pf1 Reason: unknown pf1 Signatures: Dispatcher [employer] Shnaia Lim RN RN pf1 Eugene Morton ci Corrections: (The following items were deleted from the chart) 20:05 20:04 Social history: Smoking status: Patient reports the use of cigarette tobacco pf1 products, smokes one-half pack cigarettes per day, Patient/guardian denies using alcohol, street drugs, pf1
== END ==
LOC: ER 19:49
DX: Z53.21 Procedure and treatment not carried out due to patient leaving prior to being seen by health care provider (principal)
CPT/HCPCS: 99281